=== PATIENT | male | born 2000 | race Two or more races ===

== ENCOUNTER 2021-12-04 14:10 | Emergency (ER) | payer OTHER ==
[2021-12-04] MEDS ORDERED: Lidocaine 1% with EPINEPHrine 1:100,000 10 ML MDV INJECT ONE (14:37)
[2021-12-04] MEDS ORDERED: Diphtheria,Pertussis(Acell),Tetanus Vaccine 0.5 ML Syringe IM ONE (14:37)
== END 2021-12-04 15:11 | disposition home or self-care (01) ==
LOC: MW.ED 14:10
DX: S61.412A Laceration without foreign body of left hand, initial encounter (principal); Z23 Encounter for immunization; W26.8XXA Contact with other sharp object(s), not elsewhere classified, initial encounter; Y99.0 Civilian activity done for income or pay
CPT/HCPCS: 12001; 90471; 90715; 99282; 99282-25